=== PATIENT | female | born 2005 | race Caucasian/White ===

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

== ENCOUNTER 2025-02-19 19:37 | Emergency (ER) | payer OTHER ==
[~2025-02-19 19:37] MED LIST changes: +AUG875T PO; +BENZ200C64 PO
== END 2025-02-19 19:59 | disposition left against medical advice (07) ==
LOC: ER 19:45
DX: R10.9 Unspecified abdominal pain (principal); R11.0 Nausea; R19.7 Diarrhea, unspecified; Z53.21 Procedure and treatment not carried out due to patient leaving prior to being seen by health care provider